=== PATIENT | female | born 1950 | race Caucasian/White ===

== ENCOUNTER 2020-06-19 21:22 | Emergency (ER) | payer MEDICARE ==
[2020-06-19 22:23] LABS: HEMOGLOBIN 12.5 gm/dl (12.3-15.3); RED BLOOD COUNT 4.27 M/UL (4.00-5.10); WHITE BLOOD COUNT 8.4 K/UL (4.5-11.0)
[2020-06-19 22:42] LABS: BUN/CREATININE RATIO 14 (0-10)
[2020-06-20] MEDS ORDERED: COLACE 100MG C100 MG PO (01:47)
[2020-06-20] MEDS ORDERED: CEFUROXIME500 MG PO (01:47)
== END 2020-06-20 02:20 | disposition home or self-care (01) ==
LOC: ER1 21:22
PROVIDERS: Physician Assistant
DX: S09.90XA Unspecified injury of head, initial encounter (principal); N39.0 Urinary tract infection, site not specified; K59.00 Constipation, unspecified; E11.9 Type 2 diabetes mellitus without complications; I10 Essential (primary) hypertension; Z90.49 Acquired absence of other specified parts of digestive tract; Z90.710 Acquired absence of both cervix and uterus; Z90.89 Acquired absence of other organs; W19.XXXA Unspecified fall, initial encounter; Y92.009 Unspecified place in unspecified non-institutional (private) residence as the place of occurrence of the external cause
CPT/HCPCS: 70450; 80053; 81001; 83690; 85025; 99284; Q9967